=== PATIENT | male | born 1975 | race Caucasian/White ===

== ENCOUNTER 2017-01-14 22:15 | Emergency (ER) | payer SELFPAY ==
[~2017-01-14] VITALS: Ht 182.9 cm; Wt 79.5 kg
[2017-01-14 22:22] VITALS: BP 129/69
== END 2017-01-15 01:11 | disposition left against medical advice (07) ==
LOC: EMS 22:18
DX: K62.5 Hemorrhage of anus and rectum (principal); Z53.21 Procedure and treatment not carried out due to patient leaving prior to being seen by health care provider